=== PATIENT | female | born 1935 | race Native Hawaiian/Other Pacific Islander ===

== ENCOUNTER 2018-12-27 13:30 | Inpatient (IN) | payer OTHER | END 2019-01-01 13:30 | disposition home or self-care (01) | LOC: TELE-WESTW 21:39 → ER 13:30 → TELE 13:31 → TELE-WESTW 21:58 | DX: A41.9 Sepsis, unspecified organism (principal); N18.6 End stage renal disease; J18.1 Lobar pneumonia, unspecified organism; G93.41 Metabolic encephalopathy; J96.00 Acute respiratory failure, unspecified whether with hypoxia or hypercapnia; I12.0 Hypertensive chronic kidney disease with stage 5 chronic kidney disease or end stage renal disease; E11.22 Type 2 diabetes mellitus with diabetic chronic kidney disease; D63.1 Anemia in chronic kidney disease; E87.5 Hyperkalemia ==

== ENCOUNTER 2019-03-09 09:09 | Emergency (ER) | payer OTHER ==
[~2019-03-09] VITALS: Ht 162.6 cm; Wt 49.9 kg
[~2019-03-09 09:09] MED LIST: ACET-1603 PO; AMOX500T86 PO; ATOR10TA52 PO; B COCAP12 PO; CHOL20007 PO; DOCU-94 PO; FAM20T PO; FER325T PO; FOLI800T14 PO; HYDR50TA15 PO; ISOS5TAB20 PO; MED20T PO; NIFE30TA76 PO; OMEG100078 PO; SEVE800T8 PO
[2019-03-09] MEDS ORDERED: SODIUM CHLORIDE 0.9% 1,000 ML IV ONE (09:31)
[2019-03-09 10:19] LABS: Basophils # (auto) 0 uL; Basophils % (auto) 1.2 % (0.0-2.0); Eosinophils # (auto) 0 uL; Eosinophils % (auto) 0.3 % (0.0-7.0); Hematocrit 32.2 % (36.0-46.0); Hemoglobin 11.1 g/dL (12.2-16.2); Lymphocytes # (auto) 0.6 uL; Lymphocytes % (auto) 18.6 % (10.0-50.0); Mean Corpuscular Hemoglobin 32.6 pg (28.0-32.0); Mean Corpuscular Hgb Conc. 34.5 g/dL (32.0-36.0); Mean Corpuscular Volume 94.4 fL (80.0-100.0); Monocytes # (auto) 0.3 uL; Monocytes % (auto) 8.8 % (0.0-12.0); Neutrophils # (auto) 2.3 uL; Neutrophils % (auto) 71.1 % (37.0-80.0); Platelet Count (auto) 83 10^3/uL (140-450); Red Blood Cells 3.42 10^6/uL (4.0-5.20); Red Cell Distribution Width 18.3 % (11.8-14.3); White Blood Cell 3.2 10^3/uL (4.4-10.8)
[2019-03-09 10:36] LABS: Albumin 3.2 g/dL (3.4-5.0); Calcium 8.3 mg/dL (8.5-10.1); Potassium 3.9 mmol/L (3.5-5.1)
[2019-03-09 10:38] LABS: BUN/Creatinine Ratio 7.5
[2019-03-09 10:43] LABS: Bilirubin, Total 1.2 mg/dL (0.2-1.0)
[2019-03-09 10:44] VITALS: BP 151/64
[2019-03-09 11:10] LABS: INR 1.05 (0.9-1.15); Partial Thromboplastin Time 29.1 sec (23.64-32.05)
== END 2019-03-09 11:15 | disposition short-term general hospital (02) ==
LOC: EDBD 09:09 → ER 09:09
DX: S06.5X0A Traumatic subdural hemorrhage without loss of consciousness, initial encounter (principal); S00.03XA Contusion of scalp, initial encounter; E11.22 Type 2 diabetes mellitus with diabetic chronic kidney disease; I12.9 Hypertensive chronic kidney disease with stage 1 through stage 4 chronic kidney disease, or unspecified chronic kidney disease; N18.9 Chronic kidney disease, unspecified; Z95.0 Presence of cardiac pacemaker; W01.0XXA Fall on same level from slipping, tripping and stumbling without subsequent striking against object, initial encounter; Y93.89 Activity, other specified; Y92.89 Other specified places as the place of occurrence of the external cause; Y99.8 Other external cause status
CPT/HCPCS: 36415; 70450; 71045; 72170; 80053; 84484; 85025; 85610; 85730; 93005; 99291; J7030